=== PATIENT | female | born 1995 | race Hispanic/Latino ===

== ENCOUNTER 2019-10-08 22:15 | Emergency (ER) | payer MEDICAID, OTHER ==
[2019-10-08] MEDS ORDERED: KETOROLAC TROMETHAMINE 60 MG/2 ML VIAL ONE (23:39)
== END 2019-10-09 01:19 | disposition home or self-care (01) ==
LOC: EDH 22:15
DX: M25.571 Pain in right ankle and joints of right foot (principal); Z88.6 Allergy status to analgesic agent; K76.0 Fatty (change of) liver, not elsewhere classified
CPT/HCPCS: 73610; 96372; 99284; J1885

== ENCOUNTER 2023-11-15 21:05 | Emergency (ER) | payer BC, OTHER ==
[~2023-11-15] VITALS: Ht 170.2 cm; Wt 106.6 kg
[2023-11-15 21:56] LABS: APPEARANCE,URINE CLEAR (CLEAR); BILIRUBIN,URINE NEGATIVE (NEGATIVE); COLOR,URINE LIGHT-YELLOW (YELLOW); GLUCOSE, URINE (UA) NEGATIVE (NEGATIVE); KETONES,URINE NEGATIVE (NEGATIVE); LEUKOCYTE ESTERASE ,URINE 25 Leu/uL (NEGATIVE); NITRATE,URINE NEGATIVE (NEGATIVE); OCCULT BLOOD,URINE NEGATIVE (NEGATIVE); PH,URINE 6.5 (5.0-8.0); PROTEIN,URINE NEGATIVE (NEGATIVE); UROBILINOGEN,URINE 0.2 mg/dL (0.2-1.0)
[2023-11-15 21:57] LABS: ADD UA MICROSCOPIC YES
[2023-11-15 21:59] LABS: BASOPHILS # (AUTO) 0.06 K/uL (0.00-0.20); BASOPHILS % (AUTO) 0.4 % (0.0-5.0); EOSINOPHILS # (AUTO) 0.09 K/uL (0.00-0.70); EOSINOPHILS % (AUTO) 0.5 % (0.0-8.0); HEMATOCRIT 40.1 % (36-48); IMMATURE GRANULOCYTE ABSOLUTE 0.09 K/uL (0-1); LYMPHOCYTES # (AUTO) 2.8 K/uL (1.0-4.8); LYMPHOCYTES % (AUTO) 17.3 % (21.0-51.0); MEAN CORPUSCULAR HEMOGLOBIN 31.3 pg (27.0-33.0); MEAN CORPUSCULAR HGB CONC 35.4 g/dL (32.0-36.0); MEAN CORPUSCULAR VOLUME 88.5 fL (79-99); MONOCYTES # (AUTO) 0.9 K/uL (0.1-1.0); MONOCYTES % (AUTO) 5.3 % (3.0-13.0); NEUTROPHILS # (AUTO) 12.4 K/uL (1.8-7.7); PLATELET COUNT (AUTO) 269 K/uL (130-400); RED BLOOD CELL COUNT(AUTO) 4.53 MIL/uL (4.00-5.50); RED CELL DISTRIBUTION WIDTH 12.9 % (11.0-15.5); WHITE BLOOD COUNT (AUTO) 16.4 K/uL (4.8-10.8)
[2023-11-15 22:01] LABS: BACTERIA,URINE FEW /HPF (None Seen); HCG,QUALITATIVE URINE NEGATIVE (NEGATIVE); MUCUS,URINE RARE LPF (None Seen); RBC,URINE 0-1 /HPF (0-1); SQUAMOUS EPITHELIAL CELL,UR FEW /HPF (0-2)
[2023-11-15 22:09] LABS: CREATININE 0.8 mg/dL (0.5-1.5)
[2023-11-15 22:14] LABS: ALBUMIN 3.5 g/dL (3.5-5.0); BILIRUBIN,TOTAL 0.2 mg/dL (0.2-1.0); TOTAL PROTEIN, SERUM 8.1 g/dL (6.0-8.3)
[2023-11-15] MEDS: 0.9%NACL 1000ML 1,000 ML IV ONE (23:05)
[2023-11-16 00:42] VITALS: BP 121/52; PULSE 70; RESP 12; O2SAT 98
[2023-11-16] MEDS ORDERED: CEPH500B PO (00:56)
[2023-11-16] MEDS: CEFTRIAXONE 1G VIAL IVPB ONE (00:59)
== END 2023-11-16 01:12 | disposition home or self-care (01) ==
LOC: EDH 21:05
DX: N39.0 Urinary tract infection, site not specified (principal); E11.9 Type 2 diabetes mellitus without complications
CPT/HCPCS: 99284; 76856; 80053; 83690; 85025; 81001; 81025; 36415; 96374; J7030; J0696

== ENCOUNTER 2024-01-22 21:44 | Emergency (ER) | payer BC, OTHER ==
[~2024-01-22] VITALS: Ht 170.2 cm; Wt 108.9 kg
[~2024-01-22 21:44] MED LIST: CEPH500B PO
[2024-01-22 23:18] LABS: BASOPHILS # (AUTO) 0.06 K/uL (0.00-0.20); BASOPHILS % (AUTO) 0.3 % (0.0-5.0); EOSINOPHILS # (AUTO) 0.03 K/uL (0.00-0.70); EOSINOPHILS % (AUTO) 0.2 % (0.0-8.0); HEMATOCRIT 45.2 % (36-48); IMMATURE GRANULOCYTE ABSOLUTE 0.13 K/uL (0-1); LYMPHOCYTES # (AUTO) 0.9 K/uL (1.0-4.8); LYMPHOCYTES % (AUTO) 4.4 % (21.0-51.0); MEAN CORPUSCULAR HEMOGLOBIN 31.2 pg (27.0-33.0); MEAN CORPUSCULAR VOLUME 89.2 fL (79-99); MONOCYTES # (AUTO) 0.9 K/uL (0.1-1.0); MONOCYTES % (AUTO) 4.4 % (3.0-13.0); NEUTROPHILS # (AUTO) 17.7 K/uL (1.8-7.7); PLATELET COUNT (AUTO) 285 K/uL (130-400); RED BLOOD CELL COUNT(AUTO) 5.07 MIL/uL (4.00-5.50); RED CELL DISTRIBUTION WIDTH 12.3 % (11.0-15.5); WHITE BLOOD COUNT (AUTO) 19.7 K/uL (4.8-10.8)
[2024-01-22 23:35] LABS: ALBUMIN 3.8 g/dL (3.5-5.0); BILIRUBIN,TOTAL 0.4 mg/dL (0.2-1.0); CREATININE 0.7 mg/dL (0.5-1.0); POTASSIUM 4.6 mmol/L (3.5-5.1); TOTAL PROTEIN, SERUM 8.8 g/dL (6.0-8.3)
[2024-01-22] MEDS: PHENAZOPYRIDINE HCL 200 MG TABLET PO ONE (23:42)
[2024-01-22] MEDS: ONDANSETRON 4MG TABLET PO ONE (23:42)
[2024-01-22] MEDS: ACETAMINOPHEN 325 MG TAB PO ONE (23:42)
[2024-01-22 23:46] LABS: WBC MORPHOLOGY CONSISTENT W/DIFF
[2024-01-23 00:18] LABS: APPEARANCE,URINE CLEAR (CLEAR); BILIRUBIN,URINE NEGATIVE (NEGATIVE); COLOR,URINE YELLOW (YELLOW); GLUCOSE, URINE (UA) 200 mg/dL (NEGATIVE); KETONES,URINE 60 mg/dL (NEGATIVE); LEUKOCYTE ESTERASE ,URINE NEGATIVE Leu/uL (NEGATIVE); NITRATE,URINE NEGATIVE (NEGATIVE); OCCULT BLOOD,URINE NEGATIVE (NEGATIVE); PROTEIN,URINE 30 mg/dL (NEGATIVE)
[2024-01-23 00:20] LABS: ADD UA MICROSCOPIC YES
[2024-01-23 00:21] LABS: MUCUS,URINE MANY LPF (None Seen); RBC,URINE 0-1 /HPF (0-1); SQUAMOUS EPITHELIAL CELL,UR FEW /HPF (0-2)
[2024-01-23] MEDS ORDERED: ONDA-104 PO (00:40)
[2024-01-23] MEDS ORDERED: NAPR-1023 PO (00:40)
[2024-01-23] MEDS ORDERED: CEFD300C3 PO (00:40)
[2024-01-23] MEDS ORDERED: PHEN-847 PO (00:40)
[2024-01-23] MEDS: 0.9%NACL 1000ML 1,848 ML IV ONE (00:57)
[2024-01-23] MEDS: ZOSYN 3.375GM+NS 50ML 50 ML IVPB STA (00:59)
[2024-01-23 01:46] VITALS: BP 115/68; PULSE 98; RESP 19; O2SAT 99
== END 2024-01-23 03:57 | disposition home or self-care (01) ==
LOC: EDH 21:44
DX: R30.0 Dysuria (principal); M54.50 Low back pain, unspecified; R10.9 Unspecified abdominal pain; E11.65 Type 2 diabetes mellitus with hyperglycemia; D72.829 Elevated white blood cell count, unspecified; Z79.899 Other long term (current) drug therapy; Z98.890 Other specified postprocedural states
CPT/HCPCS: 99285; 80053; 84702; 85025; 87040 ×2; 83605; 81001; 36415 ×2; 74176; 96365; 96366; Q0162; J7030; J2543

== ENCOUNTER 2025-03-27 22:00 | Emergency (ER) | payer SELFPAY ==
[~2025-03-27] VITALS: Ht 170.2 cm; Wt 98.0 kg
[~2025-03-27 22:00] MED LIST changes: +CEFD300C3 PO; +NAPR-1194 PO; +ONDA-104 PO; +PHEN-847 PO
--- NOTE | 2025-03-27 22:32 | EKG ---
[facility] Test Date: 2025-03-27 Test Time: 22:29:07 Pat Name: EMERSON FONTENOT Department: ED Room: Gender: F Apprentice Carpenter: [id number] : 1995 Requested By: KEVIN PEREIRA Order Number: [id number] Reading MD: Venu Davis Measurements Intervals Rolfe Rate: 91 P: 18 GA: 148 QRS: 52 QRSD: 90 T: 0 QT: 342 QTc: 422 Interpretive Statements Sinus rhythm Low voltage, precordial leads Nonspecific T abnormalities, lateral leads No previous ECG available for comparison Electronically Signed On 03-29-2025 10:31:43 CDT by Venu Davis Please click the below link to view image of tracing.
[2025-03-27] MEDS: 0.9%NACL 1000ML 1,000 ML IV ONE (22:46)
[2025-03-27 23:06] LABS: BASOPHILS # (AUTO) 0.04 K/uL (0.00-0.20); BASOPHILS % (AUTO) 0.3 % (0.0-5.0); EOSINOPHILS # (AUTO) 0.11 K/uL (0.00-0.70); EOSINOPHILS % (AUTO) 0.8 % (0.0-8.0); HEMATOCRIT 38.7 % (36-48); IMMATURE GRANULOCYTE ABSOLUTE 0.07 K/uL (0-1); LYMPHOCYTES # (AUTO) 3.3 K/uL (1.0-4.8); MEAN CORPUSCULAR HGB CONC 35.1 g/dL (32.0-36.0); MEAN CORPUSCULAR VOLUME 88.2 fL (79-99); MONOCYTES # (AUTO) 0.8 K/uL (0.1-1.0); MONOCYTES % (AUTO) 5.8 % (3.0-13.0); NEUTROPHILS # (AUTO) 8.8 K/uL (1.8-7.7); NEUTROPHILS % (AUTO) 67.6 % (40.0-77.0); PLATELET COUNT (AUTO) 292 K/uL (130-400); RED BLOOD CELL COUNT(AUTO) 4.39 MIL/uL (4.00-5.50); RED CELL DISTRIBUTION WIDTH 12.9 % (11.0-15.5); WHITE BLOOD COUNT (AUTO) 13.1 K/uL (4.8-10.8)
[2025-03-27 23:10] LABS: APPEARANCE,URINE CLOUDY (CLEAR); BILIRUBIN,URINE NEGATIVE (NEGATIVE); COLOR,URINE LIGHT-YELLOW (YELLOW); GLUCOSE, URINE (UA) NEGATIVE (NEGATIVE); KETONES,URINE NEGATIVE (NEGATIVE); LEUKOCYTE ESTERASE ,URINE 250 Leu/uL (NEGATIVE); NITRATE,URINE NEGATIVE (NEGATIVE); OCCULT BLOOD,URINE LARGE (NEGATIVE); PROTEIN,URINE NEGATIVE (NEGATIVE)
[2025-03-27 23:11] LABS: ADD UA MICROSCOPIC YES
[2025-03-27 23:13] LABS: HCG,QUALITATIVE URINE NEGATIVE (NEGATIVE)
[2025-03-27 23:14] LABS: BACTERIA,URINE RARE /HPF (None Seen); MUCUS,URINE RARE LPF (None Seen); SQUAMOUS EPITHELIAL CELL,UR MOD /HPF (0-2)
[2025-03-27 23:21] LABS: CREATININE 0.6 mg/dL (0.5-1.0); POTASSIUM 4.4 mmol/L (3.5-5.1)
[2025-03-27] MEDS: cefTRIAXone 1G VIAL IVPB ONE (23:34)
[2025-03-27] MEDS ORDERED: NITR100C4 PO (23:46)
--- NOTE | 2025-03-27 23:47 | ERN ---
ED Note History of Present Illness Stated Complaint: C/O FATIGUE,BODY PAIN, CRAMPS TO LEG X3 MONTHS Chief Complaint: Fatigue Time Seen by MD: 22:06 Time Seen by Midlevel: 22:06 Dictation: The patient is a 29-year-old female with a history of diabetes on metformin, seizures, fatty liver who presents to the emergency department with complaints of weakness, body aches for three months. Patient denies any nausea or vomiting or diarrhea. Denies any fevers. Denies any upper respiratory symptoms. No other complaints reported. Allergies: Coded Allergies: No Known Allergies (Unverified Allergy, Unknown, 11/15/23) Home Meds Active Scripts Naproxen (Naproxen) 500 Mg Tablet, 500 MG PO BID for 5 Days, #10 TAB Prov:OPHELIA BENITEZ 01/23/24 Cefdinir (Cefdinir) 300 Mg Capsule, 300 MG PO BID for 10 Days, #20 CAP Prov:OPHELIA BENITEZ 01/23/24 Ondansetron HCl (Ondansetron HCl) 4 Mg Tablet, 4 MG PO TID for 3 Days, #9 TAB Prov:OPHELIA BENITEZ 01/23/24 Phenazopyridine HCl (Pyridium) 200 Mg Tab, 200 MG PO TID for 3 Days, #9 TAB Prov:OPHELIA BENITEZ 01/23/24 Cephalexin Monohydrate (Keflex) 500 Mg Cap, 500 MG PO TID for 10 Days, #30 CAP Prov:YA MELENDEZ MD 11/16/23 Past Medical History Past Medical History: Anemia, Diabetes-Type II, Seizure Additional Past Medical Hx: EPILEPSY Surgical History: None History: Not Applicable LMP: February 24, 2025 RN Note Reviewed/Agreed w/PFSH: Yes Review of System Dictation Constitutional: Negative for fever,chills, and weight loss Eyes: Negative for injury, pain,redness, and discharge ENT: Negative for injury,pain or swelling Cardiovascular: Negative for chest pain, palpitations, and edema Respiratory: Negative for shortness of breath, cough, and wheezing, Abdomen/GI: Negative for abdominal pain, nausea, vomiting, diarrhea, and constipation Back: Negative for injury and pain : Negative for injury, bleeding and discharge MS/Extremity: Negative for injury and deformity Skin: Negative for rash, and discoloration Neuro: Negative for headache, numbness, tingling, and seizure positive for weakness Psych: Negative for suicide ideation, homicidal ideation, and hallucinations Initial Vital Sign VS Vital Signs Date Time Temp Pulse Resp B/P (MAP) Pulse Ox O2 Delivery O2 Flow Rate FiO2 03/27/25 22:03 98.4 104 18 131/82 97 Room Air Physical Exam Dictation Vital Signs reviewed General Appearance: Alert, oriented x 3, no acute distress, well developed, nourished. Head and Face: non-traumatic. Eyes: PERRL, pink conjunctivas, eyelid no trauma, anterior chamber with arcus senilis. Ears: Pinnas intact and no signs of trauma or erythema ear canals clear and no discharge TM no erythema Nose: No discharge, no bleeding. Oropharynx: Mouth normal, tongue pink. pharynx clear,no erythema, tonsils no exudates, no abscesses noted, mucous membrane moist Neck: Supple, non-tender, no thyromegaly, no masses, no JVD, no bruits Breast:Deferred Chest:No tenderness, no crepitus, no paradoxical movement, no retractions Lungs:Clear, well-ventilated, symmetric, no rales, no wheezing, no rhonchi, no stridor, good breath sounds bilaterally Heart: Regular rate, regular rhythm, no murmur, no gallops Vascular: no peripheral edema, Abdomen: Soft, positive bowel sounds, nondistended, no guarding, nontender, no rebound, no masses no hepatomegaly, no splenomegaly, no Bonilla's sign, no hernias. Rectal: Deferred Genital: Deferred Neurological: Normal speech, motor function intact, sensory function intact , upper extremities equal in strength, lower extremities equal in strength Musculoskeletal: Neck nontender, full range of motion, back nontender, full range of motion, Extremities: nontender, full range of motion Skin: Color pink, dry, no turgor, no rash, no lacerations, no abrasions, no contusions. Lymphatic: Deferred Results (Laboratory/Radiology) Laboratory/Radiology Laboratory Tests Test 03/27/25 22:00 03/27/25 23:00 Urine Color LIGHT-YELLOW (YELLOW) Urine Appearance CLOUDY (CLEAR) H Urine pH 7.0 (5.0-8.0) Urine Specific [place]ton 1.016 (1.001-1.031) Urine Protein NEGATIVE mg/dL (NEGATIVE) Urine Glucose (UA) NEGATIVE mg/dL (NEGATIVE) Urine Ketones NEGATIVE mg/dL (NEGATIVE) Urine Occult Blood LARGE (NEGATIVE) H Urine Nitrate NEGATIVE (NEGATIVE) Urine Bilirubin NEGATIVE mg/dL (NEGATIVE) Urine Urobilinogen 2.0 mg/dL (0.2-1.0) H Urine Leukocyte Esterase 250 Benjamin/uL (NEGATIVE) H Urine RBC 2-5 /HPF (0-1) H Urine WBC 11-25 /HPF (0-1) H Urine Squamous Epithelial Cells MOD /HPF (0-2) Urine Bacteria RARE /HPF (None Seen) Urine HCG, Qualitative NEGATIVE (NEGATIVE) White Blood Count 13.1 K/uL (4.8-10.8) H Red Blood Count 4.39 MIL/uL (4.00-5.50) Hemoglobin 13.6 g/dL (12.0-16.0) Hematocrit 38.7 % (36-48) Mean Corpuscular Volume 88.2 fL (79-99) Mean Corpuscular Hemoglobin 31.0 pg (27.0-33.0) Mean Corpuscular Hemoglobin Concent 35.1 g/dL (32.0-36.0) Red Cell Distribution Width 12.9 % (11.0-15.5) Platelet Count 292 K/uL (130-400) Mean Platelet Volume 8.5 fL (7.5-10.5) Immature Granulocyte % (Auto) 0.5 % (0-1) Neutrophils (%) (Auto) 67.6 % (40.0-77.0) Lymphocytes (%) (Auto) 25.0 % (21.0-51.0) Monocytes (%) (Auto) 5.8 % (3.0-13.0) Eosinophils (%) (Auto) 0.8 % (0.0-8.0) Basophils (%) (Auto) 0.3 % (0.0-5.0) Neutrophils # (Auto) 8.8 K/uL (1.8-7.7) H Lymphocytes # (Auto) 3.3 K/uL (1.0-4.8) Monocytes # (Auto) 0.8 K/uL (0.1-1.0) Eosinophils # (Auto) 0.11 K/uL (0.00-0.70) Basophils # (Auto) 0.04 K/uL (0.00-0.20) Absolute Immature Granulocyte (auto 0.07 K/uL (0-1) Nucleated Red Blood Cells 0.0 % (0.0-0.19) Sodium Level 140 mmol/L (136-145) Potassium Level 4.4 mmol/L (3.5-5.1) Chloride Level 102 mmol/L (101-111) Carbon Dioxide Level 30 mmol/L (21-32) Blood Urea Nitrogen 6 mg/dL (7-18) L Creatinine 0.6 mg/dL (0.5-1.0) Glomerular Filtration Rate Calc 125 mL/min (>90) Random Glucose 176 mg/dL (70-105) H Total Calcium 9.4 mg/dL (8.5-10.1) Total Creatine Kinase 33 U/L (21-232) Troponin I High Sensitivity < 4 ng/L (4-50) L Labs Reviewed?: Yes EKG: (+) rhythm (Sinus rhythm) EKG Comment: Date:03/27/2025 Time:2228 Ventricular rate:91 MO interval:148 QRS duration:90 QT/QTc:342 EKG interpretation: Sinus rhythm, Reviewed by ED Attending no STEMI ED Course ED Course Orders Procedure Category Date Status Time Cbc With Differential LAB 03/27/25 Complete 22:22 12 Lead Ekg Tracing- EKG 03/27/25 Complete Technical 22:22 0.9%Nacl 1000ml (Ns PHA 03/27/25 Complete 1000ml) 22:30 Creatine Kinase, Total LAB 03/27/25 Complete 22:22 Troponin I High LAB 03/27/25 Complete Sensitivity 22:22 Basic Metabolic Panel LAB 03/27/25 Complete 22:22 Urinalysis Profile LAB 03/27/25 Complete 22:22 ,Urine Test LAB 03/27/25 Complete 22:22 Culture Urine GABRIEL 03/27/25 In Process 23:12 Ceftriaxone 1g Vial PHA 03/27/25 Complete (Rocephine 1g Inj) 23:30 Current Medications Medications (Trade) Dose Ordered Sig/Cyndee Route PRN Reason Start Time Stop Time Status Last Admin Dose Admin Ceftriaxone Sodium (ROCEphine 1G INJ) 1 gm ONCE ONCE IVPB 03/27/25 23:30 03/27/25 23:31 DC 03/27/25 23:34 Sodium Chloride 1,000 ml @ 0 mls/hr ONCE ONCE IV 03/27/25 22:30 03/27/25 22:31 DC 03/27/25 22:46 Vital Signs Date Time Temp Pulse Resp B/P (MAP) Pulse Ox O2 Delivery O2 Flow Rate FiO2 03/27/25 22:03 98.4 104 18 131/82 97 Room Air Medical Decision Making MDM The patient is a 29-year-old female with a history of diabetes on metformin, seizures, fatty liver who presents to the emergency department with complaints of weakness, body aches for three months. Patient denies any nausea or vomiting or diarrhea. Denies any fevers. Denies any upper respiratory symptoms. No other complaints reported. CBC showed mild leukocytosis, no anemia, chemistry showed no electrolyte imbalance, negative troponin, urinalysis positive for leukocyte esterase. Patient given IV fluids and Rocephin and discharged on antibiotics. On physical exam patient is in no acute distress, nontender abdomen to palpation, nontoxic appearance, neurologically intact. Patient reports she has a appointment tomorrow in the clinic. Patient instructed to follow up for further evaluation. Patient understands discharge instructions and agrees to follow up to her. Differential diagnosis: Dehydration, electrolyte imbalance, ACS, rhabdomyolysis Need for hospitalization: Patient does not meet criteria for hospitalization. There are no social concerns with this patient. DX & DISP Disposition: Discharge Departure Impression: Primary Impression: Fatigue Additional Impressions: UTI (urinary tract infection), Leukocytosis Condition: Stable Scripts Nitrofurantoin Monohyd/M-Cryst (Macrobid 100 mg Capsule) 100 Mg Capsule 1 CAP PO BID for 5 Days, #10 CAP 0 Refills Prov: KEVIN PEREIRA TROLLEY WORKER 03/27/25 Additional Instructions: Please follow up with your primary doctor tomorrow. Take your medications as prescribed and until finished. If symptoms worsen please return to ER FOLLOW-UP WITH PRIMARY CARE PROVIDER IN 1 TO 2 DAYS. TAKE MEDICATIONS DIRECTED HERE IN THE EMERGENCY ROOM. OKAY TO CONTINUE HOME MEDICATIONS UNLESS OTHERWISE DISCUSSED DURING YOUR VISIT IN THE EMERGENCY ROOM TODAY. RETURN TO YOUR NEAREST EMERGENCY ROOM IF SYMPTOMS WORSEN OR IF THERE IS NO IMPROVEMENT. CALL 911 IF YOU NEED IMMEDIATE ASSISTANCE. TAKE TYLENOL OR MOTRIN [id number] NEEDED AND IF NO CONTRAINDICATIONS ARE PRESENT. INCREASE ORAL HYDRATION. A WOUND CULTURE OR URINE CULTURE WAS ORDERED HERE IN THE EMERGENCY ROOM DEPARTMENT PLEASE FOLLOW-UP WITH PRIMARY CARE PROVIDER AND ADVISE THEM TO GET REPEAT PORTS FROM OUR FACILITY. IF YOU HAD ANY LEEROY WRAP/SPLINTS THAT WERE APPLIED HERE, PLEASE DO NOT REMOVE THEM UNTIL YOU SEE YOUR PRIMARY CARE OR SPECIALTY. Referrals: SELF,REFERRAL (PCP) Time of Disposition: 23:45 I have reviewed the case, and I agree with, Diagnosis and Plan KEVIN PEREIRA TROLLEY WORKER Mar 27, 2025 23:47
[2025-03-28 00:34] VITALS: BP 129/78; PULSE 96; RESP 18; TEMP 98; O2SAT 99
== END 2025-03-28 00:35 | disposition home or self-care (01) ==
LOC: EDH 22:00
DX: N39.0 Urinary tract infection, site not specified (principal); R53.83 Other fatigue; D72.829 Elevated white blood cell count, unspecified; E11.9 Type 2 diabetes mellitus without complications; G40.909 Epilepsy, unspecified, not intractable, without status epilepticus
CPT/HCPCS: 99284; 96374; 82550; 84484; 80048; 85025; 87086; 81001; 81025; 36415; 93005; J7030; J0696